=== PATIENT | male | born 1995 | race African-American/Black ===

== ENCOUNTER 2019-04-10 01:12 | Emergency (ER) | payer SELFPAY ==
[2019-04-10] MEDS ORDERED: cefTRIAXone\\ROCEPHIN 250 MG VIAL ONE (03:16)
[2019-04-10] MEDS ORDERED: Azithromycin 250 MG TAB ONE (03:16)
[2019-04-10] MEDS ORDERED: Lidocaine 1% PF 5 ML VIAL ONE (03:17)
[2019-04-10 21:26] LABS: Chlam.trachomatis by PCR,Urine Not Detected (NotDetected)
== END 2019-04-10 03:40 | disposition home or self-care (01) ==
LOC: ERS 01:12
DX: Z20.2 Contact with and (suspected) exposure to infections with a predominantly sexual mode of transmission (principal); J45.909 Unspecified asthma, uncomplicated; Z79.51 Long term (current) use of inhaled steroids
CPT/HCPCS: 87491; 87591; 96372; 99284; J0696; J2001

== ENCOUNTER 2024-07-03 05:39 | Emergency (ER) | payer SELFPAY | END 2024-07-03 06:00 | disposition home or self-care (01) | LOC: ERS 05:39 | DX: H60.502 Unspecified acute noninfective otitis externa, left ear (principal) | CPT/HCPCS: 99282 ==